=== PATIENT | female | born 1980 | race African-American/Black ===

== ENCOUNTER 2023-01-27 06:10 | Day surgery (SDC) | payer OTHER, SELFPAY ==
[2023-01-08 09:09] VITALS: BMI 39.3
[2023-01-13 10:01] VITALS: BMI 39.5
[2023-01-27] VITALS (7 sets, daily range): BP systolic 153–181; BP diastolic 105–130; PULSE 84–100; RESP 18–24; TEMP 36.7; O2SAT 100
--- NOTE | ~2023-01-27 | XR_ITS ---
CORRECTED REPORT exam description change [facility] [place] 01/28/23 This report was recreated on 01/28/23. Original report was . EXAMINATION: XR fluoroscopy no charge DATE: 01/27/2023 08:13 INDICATION: C6-C7 interlaminar epidural steroid injection TECHNIQUE: 2 fluoroscopic images of the cervical spine were obtained during procedure performed by Dr. Auguste. Radiologist was not present for the imaging or procedure. The amount of fluoroscopy time used during this procedure was 0.3 minutes. COMPARISON: None. FINDINGS: A needle projects over the lower cervical spine with orientation suggesting an interspinous process approach at the level of C6-C7. The margins of the bone are poorly delineated on the lateral projection. The small amount of injected contrast about the needle tip appears to remain loculated in the epidural space posterior to the central canal. IMPRESSION: 1. Fluoroscopy utilized during reported interlaminar epidural steroid injection at the level of C6-C7. See procedure note for further detail. Reviewed, dictated and finalized at location A. MTDD
--- NOTE | 2023-01-27 07:12 | PM.HPGS ---
History of Present Illness History of Present Illness Consent: Risks, benefits, and alternatives have been discussed and questions answered. Patient agrees to proceed with procedure. Chief complaint: Cervical Radiculopathy Narrative: Allyssa Robles is a 42 year old female Review of Systems Review of Systems: All systems reviewed & are unremarkable except as noted in HPI and below (Office note 12/15/22) Musculoskeletal: Comments: cervicalgia with radiculopathy PMFSH Past Medical History Medical History Anemia Anxiety Arthritis Hypertension Migraine Surgical History Surgical History H/O dilation and curettage H/O hernia repair H/O myomectomy Hx of cholecystectomy Family History Family History Father Depression Mother Diabetes mellitus Depression Social History Social History Smoking packs per day: 0.5 Smoking cigarettes per day: 10.0 Smoking status: Never smoker Tobacco type: cigarettes Second hand tobacco smoke exposure: No Alcohol intake: current Alcohol use details: occassional Substance use: never Substance use type: does not use Living arrangements: alone Spiritual care concerns: No Meds Home Medications and Allergies Home Medications Medication Instructions Recorded Confirmed Type No Home Medications 01/13/23 01/27/23 History Allergies Allergy/AdvReac Type Severity Reaction Status Date / Time barium sulfate Allergy Mild Hives Verified 01/27/23 06:40 diatrizoate sodium Allergy Mild Hives Verified 01/27/23 06:40 erythromycin base Allergy Mild Rash Verified 01/27/23 06:40 Gadolinium-Containing Allergy Mild Hives Verified 01/27/23 06:40 Contrast Medi iodoform Allergy Mild Hives Verified 01/27/23 06:40 Penicillins AdvReac Severe hive Verified 01/27/23 06:40 vancomycin AdvReac Severe hives Verified 01/27/23 06:40 azithromycin AdvReac Mild hives Verified 01/27/23 06:40 Vital Signs Vital Signs - 24 hr 01/27/23 06:42 Temperature 98.1 F Pulse Rate 92 Respiratory Rate 20 Blood Pressure 153/109 H Pulse Oximetry 100 Oxygen Delivery Room Air Exam Const: General: cooperative, healthy appearing, comfortable and no acute distress Nutritional Appearance: average body habitus Orientation/consciousness: patient oriented x3 HENMT: Head: normal to inspection Neck: Neck: normal visual inspection Chest: Chest palpation & inspection: normal inspection of the chest Resp: Effort & Inspection: normal respiratory effort Auscultation: clear to auscultation bilaterally Cardio: Rate: regular rate Rhythm: regular rhythm Peripheral pulses: Peripheral pulses 2+ throughout Back/Spine/Pelvis: Cervical Spine: loss of normal cervical lordosis, pain with cervical ROM and cervical ROM abnormal Skin: General skin exam: normal color and no rashes or lesions noted Neuro: Cranial nerves: Yes CN's II-XII intact bilaterally and Yes Bilaterally intact EOM present Motor exam (neuro): 5/5 motor strength present throughout Psych: Appearance: grossly normal Mental Status: mental status grossly normal Assessment and Plan Assessment and plan (1) Cervical radiculopathy: Code(s): M54.12 - Radiculopathy, cervical region Status: Acute (2) Cervical disc herniation: Code(s): M50.20 - Other cervical disc displacement, unspecified cervical region Status: Acute (3) Hand paresthesia: Code(s): R20.2 - Paresthesia of skin Status: Acute Plan Patient okay to proceed with leftward C6-7 cervical interlaminar epidural steroid injection under fluoroscopic guidance for treatment of cervical radiculopathy.
--- NOTE | 2023-01-27 07:18 | WPDHPUPDATE1 ---
History and Physical Update Update Date/Time: 01/27/23 07:18 History and Physical has been reviewed, including an updated exam of the patient. There are NO changes in the patient's condition. Risks, benefits, and alternatives have been discussed and questions answered. Patient agrees to proceed with procedure.
[2023-01-27] MEDS: LIDOCAINE HCL 1% PF INJ 5 ML VIAL 2.5 ML INFILTRATE (07:50)
[2023-01-27] MEDS: LIDOCAINE HCL 2% PF INJ 5 ML VIAL 2.5 ML INFILTRATE (07:55)
--- NOTE | 2023-01-27 08:10 | W.PM.PROC2 ---
Procedure Note - Detailed Date of Procedure 01/27/23 Pre-op Diagnosis Cervical Radiculopathy Post-op Diagnosis Same Procedure Performed leftward C6-7 intralaminar epidural steroid injection under fluoroscopic guidance. Surgeon Jed Auguste MD Quar[employer] Supervisor Open Pit none Anesthesia Local Indications left cervical radiculopathy. Findings None. Description of Procedure INFORMED CONSENT: Risks, benefits and alternatives to the procedure were discussed in detail with the patient who expressed explicit understanding and consent to proceed. Patient was informed verbally and in written form regarding the risks associated with the procedure including the low risk of serious infection, bleeding/bruising, allergic reaction, nerve or organ injury, paralysis, procedural site pain or discomfort, worsening pain and/or mobility, failure to treat and/or disfigurement. The patient expressed explicit understanding and consent to proceed. All materials required for the procedure were available prior to procedure start. Site and side was marked prior to procedure and confirmed in the presence of the patient. PROCEDURE IN DETAIL: The patient was brought to the procedural suite and placed in the prone position. Patient's head was positioned and stabilized with a ProneView pillow or equivalent. Patient was made comfortable with use of pillows under the chest, hips and ankles. Skin overlying the injection site was prepared broadly with ChloraPrep applicator and draped in a sterile manner. Aseptic technique was employed throughout. The endplates of the vertebral body at the site of interest were aligned in the AP view. Slight caudad tilt and ipsilateral oblique angulation was utilized to optimize visualization of the targeted posterior intervertebral foramen at C6-7. Local anesthesia was established by infiltration with approximately 5 mL of 2% lidocaine via a 1-1/2 inch 27-gauge needle. A 20-gauge 4-inch Tuohy epidural needle was advanced intermittently until appropriate loss of resistance to air was identified via plastic loss of resistance syringe. Lateral view was used to confirm the appropriate positioning of the needle tip within the posterior epidural space. [In the AP view, 2.0 mL of IsoVue 300M contrast medium was injected after negative aspiration for CSF, blood or other bodily fluid, showing appropriate epidural spread of contrast without evidence of intravascular or intrathecal placement.] After negative repeat aspiration for CSF, blood or other bodily fluid, A 4 mL solution containing 10 mg of dexamethasone in sterile PF Normal Saline was injected after negative repeat aspiration. Appropriate spread of the injectate was confirmed with washout of previously injected contrast. No parasthesias were elicited. Needle was removed completely intact without difficulty. Images were saved and documented in the patient chart. Patient's skin was cleansed and sterile bandage applied. The patient tolerated the procedure well. The patient was transported to the recovery area in stable condition where they were observed for an appropriate amount of time prior to discharge, without evidence of complication. The patient was instructed to avoid excessive activity for the next 48 hours, including overhead work, reaching or extended device/computer usage. Showers only for 48 hours. They were instructed not to drive or operate heavy machinery for 24 hours. They are to monitor for severe headaches, fevers, chills, night sweats, erythema/swelling at the site or any other signs of infection, bleeding/bruising, bowel or bladder changes as well as new pain, weakness or numbness in the upper or lower extremity. Should they notice these changes, they are instructed to call our office immediately or report directly to the nearest Emergency Department if no answer or if after posted office hours. EXPOSURE:Time: sTotal Dose: CONTRAST WASTED: [13]mL [Isovue 300M]. Complications None [facility]
--- NOTE | 2023-01-27 09:44 | W.PM.PROC2 ---
Procedure Note - Detailed Date of Procedure 01/27/23 Pre-op Diagnosis Cervical Radiculopathy Post-op Diagnosis Same Procedure Performed Leftward C6-7 interlaminar epidural steroid injection under fluoroscopic guidance. Surgeon Jed Auguste MD Fisher Sponge Hooking None. Anesthesia Local Indications Left cervical radiculopathy. Findings None. Description of Procedure INFORMED CONSENT: Risks, benefits and alternatives to the procedure were discussed in detail with the patient who expressed explicit understanding and consent to proceed. Patient was informed verbally and in written form regarding the risks associated with the procedure including the low risk of serious infection, bleeding/bruising, allergic reaction, nerve or organ injury, paralysis, procedural site pain or discomfort, worsening pain and/or mobility, failure to treat and/or disfigurement. The patient expressed explicit understanding and consent to proceed. All materials required for the procedure were available prior to procedure start. Site and side was marked prior to procedure and confirmed in the presence of the patient. PROCEDURE IN DETAIL: The patient was brought to the procedural suite and placed in the prone position. Patient's head was positioned and stabilized with a ProneView pillow or equivalent. Patient was made comfortable with use of pillows under the chest, hips and ankles. Skin overlying the injection site was prepared broadly with ChloraPrep applicator and draped in a sterile manner. Aseptic technique was employed throughout. The endplates of the vertebral body at the site of interest were aligned in the AP view. Slight caudad tilt and ipsilateral oblique angulation was utilized to optimize visualization of the targeted posterior intervertebral foramen at C6-7. Local anesthesia was established by infiltration with approximately 5 mL of 2% lidocaine via a 1-1/2 inch 27-gauge needle. A 20-gauge 4-inch Tuohy epidural needle was advanced intermittently until appropriate loss of resistance to air was identified via plastic loss of resistance syringe. Lateral view was used to confirm the appropriate positioning of the needle tip within the posterior epidural space. [In the AP view, 2.0 mL of Omnipaque 180 contrast medium was injected after negative aspiration for CSF, blood or other bodily fluid, showing appropriate epidural spread of contrast without evidence of intravascular or intrathecal placement.] After negative repeat aspiration for CSF, blood or other bodily fluid, A 4 mL solution containing 10 mg of dexamethasone in sterile PF Normal Saline was injected after negative repeat aspiration. Appropriate spread of the injectate was confirmed with washout of previously injected contrast. No parasthesias were elicited. Needle was removed completely intact without difficulty. Images were saved and documented in the patient chart. Patient's skin was cleansed and sterile bandage applied. The patient tolerated the procedure well. The patient was transported to the recovery area in stable condition where they were observed for an appropriate amount of time prior to discharge, without evidence of complication. The patient was instructed to avoid excessive activity for the next 48 hours, including overhead work, reaching or extended device/computer usage. Showers only for 48 hours. They were instructed not to drive or operate heavy machinery for 24 hours. They are to monitor for severe headaches, fevers, chills, night sweats, erythema/swelling at the site or any other signs of infection, bleeding/bruising, bowel or bladder changes as well as new pain, weakness or numbness in the upper or lower extremity. Should they notice these changes, they are instructed to call our office immediately or report directly to the nearest Emergency Department if no answer or if after posted office hours. EXPOSURE:Time: 20.2sTotal Dose: 390.44 mrad CONTRAST WASTED: 28mL Omnipaque 180. Complications None
== END 2023-01-27 08:37 | disposition home or self-care (01) ==
PROVIDERS: PCP Family Medicine; Visit Provider Anesthesiology Pain Medicine
PROC: (CPT 62321; principal; 2023-01-27 07:30)
DX: M54.12 Radiculopathy, cervical region (principal)
CPT/HCPCS: 62321; 99199